=== PATIENT | female | born 2000 ===

== ENCOUNTER 2024-12-05 03:50 | Emergency (ER) | payer BC, SELFPAY ==
[2024-12-05 03:52] VITALS: BP 121/55; BMI 22.4
[2024-12-05 04:00] VITALS: BP 120/78
--- NOTE | 2024-12-05 04:07 | ED.GENMED ---
History of Present Illness
General
Chief Complaint: Alcohol Problem
Source: patient
Exam Limitations: none
Time Seen by Provider: 12/05/24 03:59
Nursing documentation reviewed up to this point in time: agreed with
History of Present Illness
History of Present Illness:
Patient presents to ED for medical evaluation, secondary to nausea sensation along with headache, shortly after she was arrested by police officers. Patient does admit to having had alcohol this evening. Denies any other use of illicit
medications. Denies dizziness. Denies vomiting. Denies loss of sensation or weakness. In addition, patient is complaining of ongoing burning sensation with urination and pain in her vaginal area. Patient has been evaluated by her primary care
physician as well as [facility] physician with treatment.
Review of Systems
Review of Systems
Allergies reviewed?: Yes
All Other Systems: ROS reviewed and negative except as documented in HPI and ROS
Constitutional: Reports no symptoms
Respiratory: Reports no symptoms; Denies trouble breathing
Cardiac: Reports no symptoms; Denies chest pain or syncope
ABD/GI: Denies nausea
: Reports no symptoms
Musculoskeletal: Reports no symptoms
Skin: Reports no symptoms
Neurological: Reports headache; Denies dizzy or weakness
Phy Exam
Physical Exam
Physical Exam:
Physical Exam
General: no apparent distress, not acutely ill. afebrile.
Head: nc/at. eomi
Neck: supple. no meningeal signs. normal range of motion
Heart: s1/s2 regular rate and rhythm
Lungs: no acute respiratory distress. clear bilaterally
Abdomen: normal bowel sounds. not tender.
Neuro: alert and oriented x 3. no focal neurological deficits. normal speech. normal gait
Skin: no rash
Psychiatric: well kept. interactive and cooperative
Extremities: no edema. no calf tenderness.
Scores
Withdrawal Assessment of Alcohol
Withdrawal Assessment Completed?: Not applicable
Course
Orders/Labs/Results
Orders:
Orders
12/05/24 04:07
Acetaminophen [Tylenol] 650 mg PO NOW STA
Vital Signs
Initial and Last Documented VS:
Initial Vital Signs
Pulse Resp BP Pulse Ox
122 22 121/55 98
12/05/24 03:52 12/05/24 03:52 12/05/24 03:52 12/05/24 03:52
Last Documented Vital Signs
Pulse Resp BP Pulse Ox
122 22 120/78 98
12/05/24 03:52 12/05/24 03:52 12/05/24 04:00 12/05/24 04:07
MDM/Problems Addressed
MDM/Problems Addressed:
History and exam does not reveal any acute findings warranting further studies at this time. Part of presenting symptoms may be secondary to recent alcohol consumption. Otherwise, patient is alert awake, afebrile, hemodynamically stable,
neurologically intact, and appears comfortable. Discussed with patient about her ongoing dysuria and vaginal discomfort, which may require further investigation by her [facility] [employer] [facility] physician as well as potential consultation with [facility]/urology. No indication
for any acute studies at this time. Patient will be discharged to the care of police officers at this time, in stable condition
*Pulse Oximetry
SaO2: 98
Oxygen Mode of Delivery: Room air
Patient hypoxic: no
*Critical Care Note
Total Time (30-74mins, 75-104mins- exclusive of procedures): Not Applicable
ED Attending Note
-
Portions of this chart may have been created with voice recognition software.� Occasional wrong word or��sound alike� substitutions may have occurred due to the inherent limitations of voice recognition software.
Discharge Plan
Departure
Patient Disposition: Home (Routine Discharge)
Date of Disposition: 12/05/24
Time of Disposition: 04:07
Patient with high blood pressure during this ER visit?: Yes
Discharge Problem:
Encounter for medical screening examination
Instructions: Headaches in adults
Activity Restrictions/Additional Instructions:
As discussed, please follow-up with your primary care physician and/or [facility] physician for your ongoing urinary symptoms.
Interventions
Interventions:
*Risk Screen - Suicide Last Done: 12/05/24 03:52
*General Assessment Last Done: 12/05/24 03:52
*Neglect/Abuse Screening Last Done: 12/05/24 03:52
*ED- Fall Risk Assessment Last Done: 12/05/24 03:52
*ED COVID-19 Vaccine History Last Done: 12/05/24 03:52
*Nursing Disposition Last Done: 12/05/24 04:33
ED- Neurological Assessment Last Done: 12/05/24 04:02
ED-Psychological Assessment Last Done: 12/05/24 04:02
Discharge Date and Time
Discharge Date/Time: 12/05/24 04:30
Print Language: KOREAN
[2024-12-05] MEDS: TYLENOL 650 MG PO (04:12)
== END 2024-12-05 04:30 | disposition home or self-care (01) ==
LOC: EMR 03:50
PROVIDERS: EMERGENCY PHYSICIAN Emergency Medicine
DX: Z02.79 Encounter for issue of other medical certificate (principal); F10.90 Alcohol use, unspecified, uncomplicated; R11.0 Nausea; R51.9 Headache, unspecified; R10.2 Pelvic and perineal pain; R30.0 Dysuria; Z65.3 Problems related to other legal circumstances
CPT/HCPCS: 99283